=== PATIENT | female | born 1950 | race Caucasian/White ===

== ENCOUNTER 2018-04-04 06:39 | Day surgery (SDC) | payer OTHER ==
[2018-04-02 14:21] VITALS: BMI 30.9
[~2018-04-04 06:39] MED LIST: TOBRAMYCIN/DEXAMETHASONE OPHTH. OINTMENT 1 TUBE OS ONE
[2018-04-04] MEDS ORDERED: TROPICAMIDE 1% OPHTH SOLN 15 ML BOTTLE OP SCH (06:45)
[2018-04-04] MEDS ORDERED: PHENYLEPHRINE 2.5% OPHTH SOLN 15 ML BOTTLE OP SCH (06:45)
[2018-04-04] MEDS ORDERED: KETOROLAC TROMETHAMINE 0.5% 5 ML BOTTLE OPTHALMIC OP SCH (06:45)
[2018-04-04] MEDS ORDERED: CIPROFLOXACIN HCL 0.3% OPHTH 2.5ML BOTTLE OP SCH (06:45)
[2018-04-04] MEDS ORDERED: CHONDROITIN SU A/HYALUR SOD 1 KIT ONE ×2 (07:06→11:50)
[2018-04-04] MEDS ORDERED: LIDOCAINE HCL/PF 1% SDV 5ML VIAL ONE (07:19)
[2018-04-04] MEDS ORDERED: TOBRAMYCIN/DEXAMETHASONE OPHTH. OINTMENT 1 TUBE ONE (07:19)
[2018-04-04] MEDS ORDERED: LIDOCAINE HCL 2% JELLY (5 ML/TUBE) ONE (07:19)
[2018-04-04] MEDS ORDERED: BSS (NA/CA/MG/K) BALANCED SALT SOLUTION OPHTH SOLN 15 ML BOTTLE ONE (07:20)
[2018-04-04 07:26] VITALS: TEMP 97.7
[2018-04-04] MEDS ORDERED: CIPROFLOXACIN HCL 0.3% OPHTH 2.5ML BOTTLE ONE (07:28)
[2018-04-04] MEDS ORDERED: PHENYLEPHRINE 2.5% OPHTH SOLN 15 ML BOTTLE ONE (07:28)
[2018-04-04] MEDS ORDERED: TROPICAMIDE 1% OPHTH SOLN 15 ML BOTTLE ONE (07:28)
[2018-04-04] MEDS ORDERED: KETOROLAC TROMETHAMINE 0.5% 5 ML BOTTLE OPTHALMIC ONE (07:34)
[2018-04-04] MEDS ORDERED: CIPROFLOXACIN HCL 0.3% OPHTH 2.5ML BOTTLE OS ONE ×2 (07:41→07:47)
[2018-04-04] MEDS ORDERED: TROPICAMIDE 1% OPHTH SOLN 15 ML BOTTLE OS ONE ×3 (07:41→08:01)
[2018-04-04] MEDS ORDERED: PHENYLEPHRINE 2.5% OPHTH SOLN 15 ML BOTTLE OS ONE ×3 (07:41→08:01)
[2018-04-04] MEDS ORDERED: KETOROLAC TROMETHAMINE 0.5% 5 ML BOTTLE OPTHALMIC OS ONE ×3 (07:41→08:01)
[2018-04-04] MEDS ORDERED: ACETAMINOPHEN 325 MG TABLET (FP) PO PRN (08:00)
[2018-04-04] MEDS ORDERED: CIPROFLOXACIN 0.3% EYE DROPS 5 ML BOTTLE OS ONE (08:01)
--- NOTE | 2018-04-04 08:29 | HP ---
History & Physical Update - History History: No Change - Physical Physical: No Change - Assessment Assessment: No Change - Plan Plan: No Change (Dr. Alfaro's H and P reviewed from 03/26/18 no changes)
[2018-04-04] MEDS ORDERED: BUPIVACAINE HCL/PF 0.75% 10 ML VIAL ONE (08:31)
--- NOTE | 2018-04-04 08:32 | HP ---
- Patient Scheduled date of Surgery: 04/04/18 Scheduled Surgical Procedure: Phacoemulsification and cataract extraction with PCIOL Affected Eye: Left Chief Complaint (Indication for surgery): Decreased vision affecting ADLs - Ocular History Other Eye History: Other (narrow angles, PVD , OHTN) Eye Medications: latanoprost, vigamox Previous Eye Surgery: s/p LPI ou - Medical History Illnesses: Hypertension, Hypercholesterolemia, Other (depression) Current Medications: Ambulatory Orders Docusate Sodium [Colace] 300 mg PO DAILY 04/02/18 Escitalopram Oxalate [Lexapro -] 10 mg PO DAILY 04/02/18 Hydrochlorothiazide [Hctz -] 25 mg PO DAILY 04/02/18 Olmesartan Medoxomil [Benicar] 20 mg PO HS 04/02/18 Rosuvastatin [Crestor -] 20 mg PO HS 04/02/18 Allergies/Adverse Reactions: Allergies Allergy/AdvReac Type Severity Reaction Status Date / Time No Known Allergies Allergy Verified 04/04/18 07:24 Ocular Examination - Best Corrected Visual Acuity Distance: Right eye: 20/40 Distance: Left eye: 20/50 - External/Slit Lamp Examination Abnormalities: LLL papilla, dermatochalasis, tatoo eyeliner, s Pingueculum K decrease TBUT, AC Pi patent, plateau iris, ectropion uvea - Intraocular Pressure Intraocular Pressure - Right eye: 16 Intraocular Pressure-Left eye: 15 - Lens Lens: 2+ NS - Vitreous/Retina Vitreous/Retina: C:D 0.4 m/v wnl, + PVD - Special Examination M - Right eye: +3.25-0.75 x 060 M - Left eye: +3.75- 1.00 x 120 K - Right eye: 44.5/45.35 x 145 K - Left eye: 44.5/45 x 054 AL - Right eye: 22.22 AL - Left eye: 21.95 IOL bag: +24.0 D AUooto IOL sulcus: +23.o D [id number] IOL AC: +20.0 mta 4UO - Plan Plan: Phacoemulsification and cataract extraction - IOL Left eye Post-hospital care will be provided in office on: 04/05/18
[2018-04-04] MEDS ORDERED: PROPOFOL 20 ML ONE ×2 (08:37)
[2018-04-04] MEDS ORDERED: MIDAZOLAM HCL 2 MG/2 ML SINGLE DOSE VIAL ONE (08:37)
[2018-04-04] MEDS ORDERED: LIDOCAINE HCL/PF 2% SDV 5ML VIAL ONE (08:37)
[2018-04-04] MEDS ORDERED: BUPIVACAINE HCL/PF 0.75% 10 ML VIAL RB ONE (08:54)
[2018-04-04] MEDS ORDERED: LIDOCAINE HCL/PF 2% SDV 5ML VIAL INF ONE (08:54)
[2018-04-04] MEDS ORDERED: POVIDONE-IODINE 5% OPHTHALMIC PREP 30 ML SOLUTION OS ONE (08:55)
[2018-04-04] MEDS ORDERED: BSS (NA/CA/MG/K) BALANCED SALT SOLUTION OPHTH SOLN 15 ML BOTTLE OS ONE (09:01)
[2018-04-04] MEDS ORDERED: CHONDROITIN SU A/HYALUR SOD 1 KIT IO ONE ×2 (09:01)
[2018-04-04] MEDS ORDERED: LIDOCAINE HCL 1% PRESERVATIVE FREE - 30ML VIAL IO ONE (09:01)
[2018-04-04] MEDS ORDERED: EPINEPHrine/PF 1 MG/1 ML (1:1,000) AMPULE SQ ONE (09:10)
[2018-04-04] MEDS ORDERED: ACETYLCHOLINE 1:100 INTRA-OCUL 20 MG/2 ML KIT IO ONE (09:23)
[2018-04-04] MEDS ORDERED: TOBRAMYCIN/DEXAMETHASONE OPHTH. OINTMENT 1 TUBE OS ONE (09:33)
--- NOTE | 2018-04-04 09:39 | OP ---
Ophthalmology Operative Note Pre-Operative Diagnosis: Cataract Affected Eye: Left Operation: Phacoemulsification and cataract extraction with PCIOL Findings: NS Cataract, positvite pressure, iris prolapse Post-Operative Diagnosis: Same as Pre-op Clinical Application Specialist: None Anesthesiologist: Jacinto Dueñas Anesthesia: Local, Retrobulbar Specimens Removed: none Estimated blood loss: < 1 cc Drains & Tubes with Location: None Operative Report Dictated: Yes
--- NOTE | 2018-04-04 10:16 | OP ---
DATE OF OPERATION: DATE OF DICTATION: 04/04/2018 PREOPERATIVE DIAGNOSIS: Nuclear sclerotic cataract, left eye. POSTOPERATIVE DIAGNOSIS: Nuclear sclerotic cataract, left eye. PROCEDURE: Phacoemulsification and cataract extraction with insertion of posterior chamber intraocular lens, left eye. SURGEON: Miri Siddiqui MD PAYROLL AND BENEFITS ANALYST: None. ANESTHESIA: Retrobulbar block. ANESTHESIOLOGIST: Jacinto Dueñas MD OPERATIVE PROCEDURE: Following satisfactory intravenous sedation, the patient received local anesthesia using a 50/50 mixture of lidocaine 2% and Marcaine 0.75%. A Van Lint lid block was delivered to the left eye using 4 mL of the mixture in a retrobulbar injection using 4 mL of the mixture. The patient was then prepped and draped in the usual sterile fashion so as to expose only the left eye. Ophthalmic Betadine was instilled into the inferior fornix. The lashes were taped out of the surgical field. An eyelid speculum was placed into the left eye. A paracentesis was made in inferior clear cornea at the limbus, and 0.3 mL of non-preserved lidocaine 1% was injected into the anterior chamber. Viscoelastic material was instilled into the anterior chamber via the paracentesis. A 2.4-mm keratome was then used to create the main incision in temporal clear cornea at the limbus. A continuous curvilinear capsulorrhexis was performed using a cystotome and Utrata forceps. During this step, the iris was prolapsing and was placed back in the eye using Viscoat. Hydrodissection of the lens cortex was gently performed using BSS and a cannula until the nucleus was noted to be freely rotating. The phacoemulsification tip was then inserted via the main wound and used to sculpt 2 perpendicular grooves into the lens nucleus. The nucleus was cracked into 4 quadrants using the 2 instruments. Each quadrant was lifted out of the capsule into the iris plane and individually phacoemulsified. The remaining cortical material was then aspirated using the irrigation and aspiration port. The capsular bag was inflated using Provisc, and a AcrySof lens which was preloaded, model [id number], +24.0 diopters was injected into the capsular bag and centered using a Sinskey hook. The residual Viscoelastic material was removed from the anterior chamber using irrigation and aspiration. The wound edges were hydrated using BSS. The wound was tested for leakage. It was found to be watertight, therefore TobraDex ointment was placed in the eye and the speculum was removed from the eye and the eyelid was closed. A sterile dressing and shield were placed over the eye, and the patient was transferred to the recovery room in stable condition, told to follow up in 1 day. MIRI SIDDIQUI M.D. [id number]
[2018-04-04 10:31] VITALS: BP 150/58; PULSE 81
== END 2018-04-04 10:25 | disposition home or self-care (01) ==
LOC: JASU-SURG 06:39
PROVIDERS: ATTEND Ophthalmology
PROC: 08RK3JZ Replacement of Left Lens with Synthetic Substitute, Percutaneous Approach (ICD-10-PCS; principal; 2018-04-04 08:30)
DX: H26.9 Unspecified cataract (principal)

== ENCOUNTER 2018-06-20 07:56 | Day surgery (SDC) | payer OTHER ==
--- NOTE | 2018-06-19 16:25 | HP ---
- Patient Scheduled date of Surgery: 06/20/18 Scheduled Surgical Procedure: Phacoemulsification and cataract extraction with PCIOL Affected Eye: Right Chief Complaint (Indication for surgery): Decreased vision affecting ADLs - Ocular History Other Eye History: Other (narrow angles , pvd, OHTN) Eye Medications: vigamox , pataday, latanoprost Previous Eye Surgery: s/p ce/pciol OS, s/p LPI OU - Medical History Illnesses: Hypertension, Hypercholesterolemia, Other (depression) Current Medications: Ambulatory Orders Docusate Sodium [Colace] 300 mg PO DAILY 04/02/18 Escitalopram Oxalate [Lexapro -] 10 mg PO DAILY 04/02/18 Hydrochlorothiazide [Hctz -] 25 mg PO DAILY 04/02/18 Olmesartan Medoxomil [Benicar] 20 mg PO HS 04/02/18 Rosuvastatin [Crestor -] 20 mg PO HS 04/02/18 Allergies/Adverse Reactions: Allergies Allergy/AdvReac Type Severity Reaction Status Date / Time No Known Allergies Allergy Verified 04/04/18 07:24 Ocular Examination - Best Corrected Visual Acuity Distance: Right eye: 20/40 Distance: Left eye: 20/20 - External/Slit Lamp Examination Abnormalities: papillae, pingueculum , TBUT decreased, PI 11 oclclok , plateau iris - Intraocular Pressure Intraocular Pressure - Right eye: 16 Intraocular Pressure-Left eye: 12 - Lens Lens: 2+ NS - Vitreous/Retina Vitreous/Retina: C:D 0.5 prominent lamina , pvd, m/v wnl - Special Examination M - Right eye: +3.25-0.75 x 060 M - Left eye: plano-0.75 x 085 K - Right eye: 44/45.5 x143 K - Left eye: 45/45.25 x 107 AL - Right eye: 22.36 AL - Left eye: 21.74 IOL bag: +23.5 AUooto IOL sulcus: +22.5 MN60AC IOL AC: +19.0 MTA 4UO - Impression Impression: Cataract Right Eye - Plan Plan: Phacoemulsification and cataract extraction - IOL Right eye Post-hospital care will be provided in office on: 06/21/18
[2018-06-19 19:12] VITALS: BMI 26.6
--- NOTE | 2018-06-20 07:16 | HP ---
History & Physical Update - History History: Change (see notes) (Hep C) - Physical Physical: No Change - Assessment Assessment: No Change - Plan Plan: No Change (H and P from Dr. Vaca 06/06/18 reviewed.)
[~2018-06-20 07:56] MED LIST changes: +ACETAMINOPHEN 325 MG TABLET (FP) PO PRN; -TOBRAMYCIN/DEXAMETHASONE OPHTH. OINTMENT 1 TUBE OS ONE; +TOBRAMYCIN/DEXAMETHASONE OPHTH. OINTMENT 1 TUBE TP ONE
[2018-06-20] MEDS ORDERED: CIPROFLOXACIN HCL 0.3% OPHTH 2.5ML BOTTLE ONE (08:16)
[2018-06-20] MEDS ORDERED: KETOROLAC TROMETHAMINE 0.5% EYE DROP 1 DROP DROPS ONE (08:17)
[2018-06-20] MEDS ORDERED: TROPICAMIDE 1% OPHTH SOLN 15 ML BOTTLE ONE (08:17)
[2018-06-20] MEDS ORDERED: PHENYLEPHRINE 2.5% OPHTH SOLN 15 ML BOTTLE ONE (08:17)
[2018-06-20] MEDS: PHENYLEPHRINE 2.5% OPHTH SOLN 15 ML BOTTLE OP SCH ×3 (08:30→08:46)
[2018-06-20] MEDS: CIPROFLOXACIN HCL 0.3% OPHTH 2.5ML BOTTLE OP SCH ×3 (08:30→08:47)
[2018-06-20] MEDS: KETOROLAC TROMETHAMINE 0.5% EYE DROP 1 DROP DROPS OP SCH ×2 (08:30→08:35)
[2018-06-20] MEDS: TROPICAMIDE 1% OPHTH SOLN 15 ML BOTTLE OP SCH ×3 (08:30→08:46)
[2018-06-20 08:33] VITALS: TEMP 97.8
[2018-06-20] MEDS ORDERED: MANNITOL 25% 12.5 GM/50 ML VIAL IVPB ONE ×2 (10:09→11:00)
[2018-06-20] MEDS ORDERED: PROPOFOL 20 ML ONE (10:26)
[2018-06-20] MEDS ORDERED: TETRACAINE 0.5% OPHTH SOLN 2 ML BOTTLE TP ONE (10:57)
[2018-06-20] MEDS ORDERED: POVIDONE-IODINE 5% OPHTHALMIC PREP 30 ML SOLUTION OD ONE (10:58)
[2018-06-20] MEDS ORDERED: LIDOCAINE HCL/PF 2% SDV 5ML VIAL INF ONE (10:59)
[2018-06-20] MEDS ORDERED: BUPIVACAINE HCL/PF 0.75% 10 ML VIAL NR ONE (10:59)
[2018-06-20] MEDS ORDERED: CHONDROITIN SU A/HYALUR SOD 1 KIT IO ONE (11:05)
[2018-06-20] MEDS ORDERED: BSS (NA/CA/MG/K) BALANCED SALT SOLUTION OPHTH SOLN 15 ML BOTTLE OD ONE (11:05)
[2018-06-20] MEDS ORDERED: EPINEPHrine/PF 1 MG/1 ML (1:1,000) AMPULE SQ ONE (11:14)
[2018-06-20] MEDS ORDERED: TOBRAMYCIN/DEXAMETHASONE OPHTH. OINTMENT 1 TUBE TP ONE (11:30)
--- NOTE | 2018-06-20 11:36 | OP ---
Ophthalmology Operative Note Pre-Operative Diagnosis: Cataract Affected Eye: Right Operation: Phacoemulsification and cataract extraction with PCIOL Findings: Ns cataract right eye Post-Operative Diagnosis: Same as Pre-op Galvanizing Pot Runner: None Anesthesiologist: Gege Nichols MD Anesthesia: Local, Peribulbar Specimens Removed: none Estimated blood loss: <1 cc Drains & Tubes with Location: none Operative Report Dictated: Yes
[2018-06-20 12:50] VITALS: BP 143/78; PULSE 77
--- NOTE | 2018-09-11 01:33 | OP ---
DATE OF OPERATION: 06/20/2018 PREOPERATIVE DIAGNOSIS: Nuclear sclerotic cataract, right eye. POSTOPERATIVE DIAGNOSIS: Nuclear sclerotic cataract, right eye. PROCEDURE: Phacoemulsification and cataract extraction with insertion of posterior chamber intraocular lens, right eye. SURGEON: Miri Siddiqui MD RECREATIONAL DIRECTOR: None. ANESTHESIA: Peribulbar block. ANESTHESIOLOGIST: Gege Nichols MD OPERATIVE PROCEDURE: Following intravenous sedation, the patient received local anesthesia using a 50-50 mixture of lidocaine 2% and Marcaine 0.75%. A peribulbar injection using 4 mL of the mixture was delivered. The patient was then prepped and draped in the usual sterile fashion to expose only the right eye. Prior to the block, the patient received IV mannitol 20 g in a bolus, about a half an hour before the surgery. Ophthalmic betadine was then instilled into the inferior fornix. The lashes were taped out of the surgical field. An eyelid speculum was placed into the right eye. A paracentesis was made and superior temporal clear cornea of the limbus. Viscoelastic material was instilled into the anterior chamber via the paracentesis. A 2.4-mm keratome was then used to create the main incision in the temporal clear cornea of the limbus. A continuous curvilinear capsulorrhexis was performed using a cystotome and Utrata forceps. Hydrodissection of the lens cortex was performed using BSS and a cannula until the nucleus was noted to be freely rotating. The phacoemulsification tip was inserted by the main wound and used to sculp 2 perpendicular grooves into the lens nucleus. The nucleus was cracked in 4 quadrants using 2 instruments. Each quadrant was lifted out of the capsule into the iris plane and individually phacoemulsified. The remaining cortical material was then aspirated using the irrigation and aspiration port. The capsular bag was inflated using Provisc and a pre-loaded AcrySof lens, model [id number] power plus 23.5 diopters was injected into the capsular bag and centered using a Sinskey hook. The residual viscoelastic material was removed from the anterior chamber using irrigation and aspiration. The wound edges were hydrated using BSS. The wound was tested for leakage and was found to be water tight. Therefore, TobraDex ointment was placed into the eye and the speculum was removed from the eye and eyelid was closed. Sterile dressing and shield were placed over the eye and the patient was transferred to the recovery room in stable condition. She was told to follow up in 1 day. MIRI SIDDIQUI M.D. [id number]
== END 2018-06-20 12:53 | disposition home or self-care (01) ==
LOC: JASU-SURG 07:56
PROVIDERS: ATTEND Ophthalmology
PROC: 08RJ3JZ Replacement of Right Lens with Synthetic Substitute, Percutaneous Approach (ICD-10-PCS; principal; 2018-06-20 09:30)
DX: H25.11 Age-related nuclear cataract, right eye (principal)

== ENCOUNTER 2022-05-27 12:25 | Emergency (ER) | payer OTHER ==
[2022-05-27 12:58] VITALS: BP 133/82; PULSE 93; RESP 19; TEMP 99.3; BMI 31.1
== END 2022-05-27 14:00 | disposition home or self-care (01) ==
LOC: JERFT 12:25
DX: B02.9 Zoster without complications (principal)
CPT/HCPCS: 99281-25

== ENCOUNTER 2022-08-26 07:57 | Inpatient (IN) | payer OTHER ==
[2022-08-26 08:10] VITALS: BMI 29.2
[2022-08-26] MEDS ORDERED: DEXAMETHASONE SOD PHOSPHATE 10 MG/1 ML VIAL IVPUSH ONE (08:19)
[2022-08-26] MEDS ORDERED: ONDANSETRON 4 MG/2 ML VIAL IVPB ONE (08:24)
[2022-08-26] MEDS ORDERED: ALBUTEROL SO4 2.5/IPRATROPIUM 0.5 INH SOL 3 ML VIAL.NEB. NEB ONE (08:25)
[2022-08-26] MEDS ORDERED: SODIUM CHLORIDE 0.9% 500 ML INFUS.BAG IV ONE (08:25)
[2022-08-26] MEDS ORDERED: DEXAMETHASONE SOD PHOSPHATE 10 MG/1 ML VIAL ONE (08:26)
[2022-08-26 08:55] LABS: BASO % 0.3 % (0-2.0); HEMATOCRIT 42.4 % (32.4-45.2); HEMOGLOBIN 13.8 GM/dL (10.7-15.3); LYMPH % 14.1 % (8-40); MCH 31.2 pg (25.7-33.7); MCHC 32.5 g/dl (32.0-36.0); MEAN PLT VOLUME 10.5 fl (7.5-11.1); MONO % 11.7 % (3.8-10.2); NEUT % 72.9 % (42.8-82.8); PLATELET COUNT 237 10^3/uL (134-434); RBC 4.41 M/mm3 (3.60-5.2); RDW 14.1 % (11.6-15.6); WHITE BLOOD COUNT 6.7 K/mm3 (4.0-10.0)
[2022-08-26] MEDS: ALBUTEROL SO4 2.5/IPRATROPIUM 0.5 INH SOL 3 ML VIAL.NEB. NEB SCH ×4 (08:57→10:26)
[2022-08-26] MEDS ORDERED: ONDANSETRON 4 MG/2 ML VIAL ONE (09:05)
[2022-08-26 09:15] LABS: BLOOD UREA NITROGEN 13.2 mg/dL (7-18); CALCIUM 9.1 mg/dL (8.5-10.1)
[2022-08-26 09:17] LABS: ALBUMIN 3.2 g/dl (3.4-5.0); MAGNESIUM 2.1 mg/dL (1.8-2.4)
[2022-08-26 09:19] LABS: CREATININE 0.9 mg/dL (0.55-1.3)
[2022-08-26 09:20] LABS: BILIRUBIN,TOTAL 0.7 mg/dL (0.2-1); TOT PROT 7.4 g/dl (6.4-8.2)
[2022-08-26 10:16] LABS: BLOOD UREA NITROGEN 12.6 mg/dL (7-18); CALCIUM 9.2 mg/dL (8.5-10.1)
[2022-08-26] MEDS ORDERED: REMDESIVIR 200 MG in SODIUM CHLORIDE 250 ML IVPB ONE (10:18)
[2022-08-26 10:19] LABS: CREATININE 0.9 mg/dL (0.55-1.3)
[2022-08-26 11:22] LABS: N-TERMINAL BNP 169.5 pg/ml (5-125)
[2022-08-26 11:22] LABS: VENOUS BASE EXCESS -2.6 mmol/L (-2-2); VENOUS O2 SATURATION 80.1 % (70-80); VENOUS PCO2 42.4 mmHg (38-52); VENOUS PH 7.351 (7.310-7.410)
[2022-08-26 11:59] LABS: INR 1.15 (0.83-1.09); PROTHROMBIN TIME (PATIENT) 13.2 SEC (9.7-13.0)
[2022-08-26] MEDS ORDERED: ACETAMINOPHEN 325 MG TABLET (FP) PO PRN (16:00)
[2022-08-26] MEDS ORDERED: ALBUTEROL SO4 HFA INHALER IH PRN (16:00)
[2022-08-26] MEDS ORDERED: ONDANSETRON 4 MG/2 ML VIAL IVPUSH PRN (16:00)
[2022-08-26] MEDS: LACTATED RINGERS SOLUTION 1,000 ML IV SCH (19:43)
[2022-08-26] MEDS: LOSARTAN POTASSIUM 50 MG TABLET PO SCH (22:27)
[2022-08-26] MEDS ORDERED: LOSARTAN POTASSIUM 50 MG TABLET ONE (22:27)
[2022-08-26] MEDS ORDERED: ASCORBIC ACID 500 MG TABLET (FP) ONE (22:27)
[2022-08-26] MEDS: ASCORBIC ACID 500 MG TABLET (FP) PO SCH (22:27)
[2022-08-27 10:04] LABS: HEMATOCRIT 38.7 % (32.4-45.2); HEMOGLOBIN 12.4 GM/dL (10.7-15.3); MCH 31.1 pg (25.7-33.7); MEAN CELL VOLUME 97.1 fl (80-96); MEAN PLT VOLUME 10.9 fl (7.5-11.1); PLATELET COUNT 173 10^3/uL (134-434); RBC 3.98 M/mm3 (3.60-5.2); RDW 14.1 % (11.6-15.6); WHITE BLOOD COUNT 5.1 K/mm3 (4.0-10.0)
[2022-08-27 10:22] LABS: CALCIUM 8.9 mg/dL (8.5-10.1)
[2022-08-27 10:23] LABS: BLOOD UREA NITROGEN 14.1 mg/dL (7-18)
[2022-08-27 10:26] LABS: CREATININE 0.7 mg/dL (0.55-1.3)
[2022-08-27] MEDS: ENOXAPARIN NA (PORCINE) 40 MG/0.4 ML DISP.SYRIN SQ SCH (11:38)
[2022-08-27] MEDS: DEXAMETHASONE SOD PHOSPHATE 10 MG/1 ML VIAL IVPUSH SCH (11:40)
[2022-08-27] MEDS: CHOLECALCIFEROL (VIT D3) 1,000 UNIT (25 MCG) TABLET PO SCH (11:40)
[2022-08-27] MEDS: SERTRALINE HCL 50 MG TABLET (FP) PO SCH (11:40)
[2022-08-27] MEDS: REMDESIVIR 100 MG in SODIUM CHLORIDE 250 ML IVPB SCH (11:40)
[2022-08-27] MEDS: ASCORBIC ACID 500 MG TABLET (FP) PO SCH ×2 (11:40→22:29)
[2022-08-27] MEDS: LACTATED RINGERS SOLUTION 1,000 ML IV SCH (11:41)
[2022-08-27] MEDS ORDERED: ROSUVASTATIN CA 10 MG TABLET PO SCH (22:00)
[2022-08-27] MEDS: LOSARTAN POTASSIUM 50 MG TABLET PO SCH (22:30)
[2022-08-28] MEDS: ASCORBIC ACID 500 MG TABLET (FP) PO SCH ×2 (10:30→21:09)
[2022-08-28] MEDS: CHOLECALCIFEROL (VIT D3) 1,000 UNIT (25 MCG) TABLET PO SCH (10:30)
[2022-08-28] MEDS: REMDESIVIR 100 MG in SODIUM CHLORIDE 250 ML IVPB SCH (10:30)
[2022-08-28] MEDS: SERTRALINE HCL 50 MG TABLET (FP) PO SCH (10:30)
[2022-08-28] MEDS: ENOXAPARIN NA (PORCINE) 40 MG/0.4 ML DISP.SYRIN SQ SCH (10:30)
[2022-08-28] MEDS: DEXAMETHASONE SOD PHOSPHATE 10 MG/1 ML VIAL IVPUSH SCH (10:30)
[2022-08-28] MEDS: LACTATED RINGERS SOLUTION 1,000 ML IV SCH (10:31)
[2022-08-28] MEDS: LOSARTAN POTASSIUM 50 MG TABLET PO SCH (21:09)
[2022-08-29 09:03] VITALS: BP 140/80; PULSE 68; RESP 17; TEMP 97.8
[2022-08-29] MEDS: SERTRALINE HCL 50 MG TABLET (FP) PO SCH (09:47)
[2022-08-29] MEDS: ENOXAPARIN NA (PORCINE) 40 MG/0.4 ML DISP.SYRIN SQ SCH ×2 (09:47→10:14)
[2022-08-29] MEDS: ASCORBIC ACID 500 MG TABLET (FP) PO SCH (09:47)
[2022-08-29] MEDS: CHOLECALCIFEROL (VIT D3) 1,000 UNIT (25 MCG) TABLET PO SCH (09:47)
[2022-08-29] MEDS: DEXAMETHASONE SOD PHOSPHATE 10 MG/1 ML VIAL IVPUSH SCH (09:48)
[2022-08-29] MEDS: REMDESIVIR 100 MG in SODIUM CHLORIDE 250 ML IVPB SCH (10:15)
== END 2022-08-29 13:56 | disposition home or self-care (01) | DRG 179 ==
LOC: JER 07:57 → JERBED 10:18 → J5S 08-27 04:18
PROVIDERS: ADMIT Internal Medicine; ATTEND Internal Medicine
PROC: XW033E5 Introduction of Remdesivir Anti-infective into Peripheral Vein, Percutaneous Approach, New Technology Group 5 (ICD-10-PCS; principal; 2022-08-26)
DX: U07.1 COVID-19 (principal); I10 Essential (primary) hypertension; E78.00 Pure hypercholesterolemia, unspecified; E66.9 Obesity, unspecified; Z68.29 Body mass index [BMI] 29.0-29.9, adult; R09.02 Hypoxemia; J44.9 Chronic obstructive pulmonary disease, unspecified; J45.909 Unspecified asthma, uncomplicated
CPT/HCPCS: 0241U-QW; 36415; 71045-TC-FY; 80048; 80053; 82728; 82803; 83615; 83735; 83880; 84484; 85025; 85027; 85610; 85730; 86140; 93005; 93010; 99291; C9399; J1100

== ENCOUNTER 2023-03-04 18:48 | Inpatient (IN) | payer OTHER ==
[2023-03-04] MEDS ORDERED: SUCRALFATE 1 GM TABLET (FP) PO ONE (20:50)
[2023-03-04] MEDS ORDERED: MAG HYDROX/AL HYDROX/SIMETH -MYLANTA- ORAL SUSPENSION PO ONE (20:50)
[2023-03-04] MEDS ORDERED: ACETAMINOPHEN 1000 MG/100 ML BAG IVPB ONE (20:50)
[2023-03-04] MEDS ORDERED: FAMOTIDINE 20 MG/50 ML IVPB 20 MG/50 ML MG IVPB ONE ×2 (20:50→20:59)
[2023-03-04] MEDS ORDERED: SUCRALFATE 1 GM TABLET (FP) ONE (20:59)
[2023-03-04] MEDS ORDERED: MAG HYDROX/AL HYDROX/SIMETH 30 ML UNIT-DOSE CUP ONE (20:59)
[2023-03-04] MEDS ORDERED: ACETAMINOPHEN INJECTION 100 ML IVPB ONE (20:59)
[2023-03-04] MEDS ORDERED: PIPERACILLIN/TAZOB 3.375 GM 3.375 GM in DEXTROSE 5%-WATER - 50 ML IVPB ONE (21:05)
[2023-03-04] MEDS ORDERED: LACTATED RINGERS SOLUTION 1000 ML INFUS.BAG IV ONE (21:39)
[2023-03-04] MEDS ORDERED: PIPERACILLIN/TAZOB 3.375 GM 3.375 GM/50 ML BAG IVPB ONE (21:45)
[2023-03-04 21:56] LABS: BASO % 0.3 % (0-2.0); EOS % 0.1 % (0-4.5); HEMOGLOBIN 13.1 GM/dL (10.7-15.3); MCH 30.7 pg (25.7-33.7); MCHC 32.6 g/dl (32.0-36.0); MEAN CELL VOLUME 94.3 fl (80-96); MEAN PLT VOLUME 10.8 fl (7.5-11.1); MONO % 7.5 % (3.8-10.2); NEUT % 85.1 % (42.8-82.8); PLATELET COUNT 236 10^3/uL (134-434); RBC 4.25 M/mm3 (3.60-5.2); RDW 14.2 % (11.6-15.6); WHITE BLOOD COUNT 13.6 K/mm3 (4.0-10.0)
[2023-03-04 22:04] LABS: INR 1.19 (0.83-1.09); PROTHROMBIN TIME (PATIENT) 13.8 SEC (9.7-13.0)
[2023-03-04 22:15] LABS: POTASSIUM 4.4 mmol/L (3.5-5.1)
[2023-03-04 22:17] LABS: ALBUMIN 3.3 g/dl (3.4-5.0); CALCIUM 9.3 mg/dL (8.5-10.1); MAGNESIUM 2.2 mg/dL (1.8-2.4)
[2023-03-04 22:20] LABS: CREATININE 1.1 mg/dL (0.55-1.3)
[2023-03-04 22:22] LABS: BILIRUBIN,TOTAL 0.5 mg/dL (0.2-1); TOT PROT 7.4 g/dl (6.4-8.2)
[2023-03-04 22:29] LABS: LACTIC ACID 2.1 mmol/L (0.4-2.0)
[2023-03-05] MEDS ORDERED: DOCUSATE SODIUM 100 MG CAPSULE (FP) PO PRN ×2 (01:57→15:27)
[2023-03-05] MEDS ORDERED: SODIUM CHLORIDE 1,000 ML IV SCH (02:00)
[2023-03-05] MEDS ORDERED: ACETAMINOPHEN 1000 MG/100 ML BAG IVPB PRN (02:01)
[2023-03-05] MEDS ORDERED: ONDANSETRON 4 MG/2 ML VIAL IVPUSH PRN ×4 (02:05→15:27)
[2023-03-05 04:00] LABS: EPI CELLS 6 /uL (0-25.1); HYALINE CASTS 1 /uL (0-3.1); PH,URINE 5.5 (5.0-8.0); URINE APPEARANCE CLEAR; URINE BACTERIA 383 /uL (0-1359); URINE BILIRUBIN NEGATIVE (NEGATIVE); URINE COLOR YELLOW; URINE GLUCOSE (UA) NEGATIVE (NEGATIVE); URINE KETONE NEGATIVE (NEGATIVE); URINE LEUK ESTERASE NEGATIVE (NEGATIVE); URINE NITRITE NEGATIVE (NEGATIVE); URINE PROTEIN TRACE (NEGATIVE); URINE RBC 26 /uL (0-23.9); URINE UROBILINOGEN 0.2 mg/dL (0.2-1.0)
[2023-03-05 04:48] VITALS: BMI 30.2
[2023-03-05] MEDS ORDERED: PANTOPRAZOLE SODIUM 40 MG VIAL IVPUSH ONE (06:15)
[2023-03-05] MEDS: PIPERACILLIN/TAZOB 3.375 GM 3.375 GM in DEXTROSE 5%-WATER - 50 ML IVPB SCH ×3 (08:33→18:17)
[2023-03-05] MEDS ORDERED: HYDROCHLOROTHIAZIDE 25 MG TABLET (FP) PO SCH (10:00)
[2023-03-05] MEDS ORDERED: SERTRALINE HCL 50 MG TABLET (FP) PO SCH (10:00)
[2023-03-05] MEDS ORDERED: ONDANSETRON 4 MG/2 ML VIAL ONE (13:04)
[2023-03-05] MEDS ORDERED: ROCURONIUM BROMIDE 50 MG/5 ML SYRINGE ONE (13:04)
[2023-03-05] MEDS ORDERED: SUCCINYLCHOLINE CHLORIDE 200 MG/10 ML SYRINGE ONE (13:04)
[2023-03-05] MEDS ORDERED: PROPOFOL 20 ML ONE (13:04)
[2023-03-05] MEDS ORDERED: DEXAMETHASONE SOD PHOSPHATE 4 MG/1 ML VIAL ONE (13:04)
[2023-03-05] MEDS ORDERED: KETOROLAC TROMETHAMINE 30 MG/1 ML VIAL ONE (13:04)
[2023-03-05] MEDS ORDERED: ceFAZolin SODIUM 1 GM VIAL ONE (13:04)
[2023-03-05] MEDS ORDERED: BUPIVACAINE HCL/PF 0.5% (5 MG/ML) 30 ML VIAL IJ ONE ×2 (13:32)
[2023-03-05] MEDS ORDERED: BUPIVACAINE HCL/PF 0.5% (5MG/ML) 10 ML VIAL ONE (13:35)
[2023-03-05] MEDS ORDERED: NEOSTIGMINE METHYLSULFATE 0.5 MG/1 ML - 10 ML MDV ONE (14:44)
[2023-03-05] MEDS ORDERED: GLYCOPYRROLATE 0.2 MG/1 ML VIAL ONE ×2 (14:44)
[2023-03-05] MEDS ORDERED: oxyCODONE HCL 5 MG TABLET PO PRN ×2 (15:12→15:27)
[2023-03-05] MEDS ORDERED: LACTATED RINGERS SOLUTION 1,000 ML IV SCH (15:15)
[2023-03-05] MEDS ORDERED: PIPERACILLIN/TAZOB 3.375 GM 3.375 GM in DEXTROSE 5%-WATER - 50 ML IVPB SCH ×2 (15:45→16:00)
[2023-03-05] MEDS ORDERED: ACETAMINOPHEN INJECTION 100 ML IVPB ONE (16:44)
[2023-03-05] MEDS: ACETAMINOPHEN 1000 MG/100 ML BAG IVPB SCH ×2 (16:50→22:00)
[2023-03-05] MEDS: LACTATED RINGERS SOLUTION 1,000 ML IV SCH (18:19)
[2023-03-05] MEDS: ROSUVASTATIN CA 10 MG TABLET PO SCH (21:59)
[2023-03-05] MEDS ORDERED: ROSUVASTATIN CA 10 MG TABLET PO SCH (22:00)
[2023-03-06] MEDS: PIPERACILLIN/TAZOB 3.375 GM 3.375 GM in DEXTROSE 5%-WATER - 50 ML IVPB SCH ×3 (01:17→18:50)
[2023-03-06] MEDS ORDERED: ACETAMINOPHEN 325 MG TABLET (FP) PO PRN ×2 (01:57→08:00)
[2023-03-06] MEDS: LACTATED RINGERS SOLUTION 1,000 ML IV SCH ×2 (05:31→18:50)
[2023-03-06 07:54] LABS: BASO % 0.2 % (0-2.0); EOS % 0.2 % (0-4.5); HEMATOCRIT 33.5 % (32.4-45.2); HEMOGLOBIN 11.1 GM/dL (10.7-15.3); MCH 30.9 pg (25.7-33.7); MCHC 33.2 g/dl (32.0-36.0); MEAN CELL VOLUME 93.3 fl (80-96); MEAN PLT VOLUME 10.4 fl (7.5-11.1); MONO % 7.1 % (3.8-10.2); NEUT % 84.5 % (42.8-82.8); PLATELET COUNT 178 10^3/uL (134-434); RBC 3.59 M/mm3 (3.60-5.2); RDW 14.3 % (11.6-15.6); WHITE BLOOD COUNT 12.2 K/mm3 (4.0-10.0)
[2023-03-06 08:11] LABS: POTASSIUM 3.6 mmol/L (3.5-5.1)
[2023-03-06 08:14] LABS: BLOOD UREA NITROGEN 16.9 mg/dL (7-18); CALCIUM 8.2 mg/dL (8.5-10.1); MAGNESIUM 2.2 mg/dL (1.8-2.4)
[2023-03-06 08:17] LABS: CREATININE 0.8 mg/dL (0.55-1.3); PHOSPHOROUS 2.6 mg/dL (2.5-4.9)
[2023-03-06 08:19] LABS: BILIRUBIN,TOTAL 0.7 mg/dL (0.2-1); TOT PROT 5.5 g/dl (6.4-8.2)
[2023-03-06 08:35] LABS: ALBUMIN 2.2 g/dl (3.4-5.0)
[2023-03-06] MEDS ORDERED: PIPERACILLIN/TAZOB 3.375 GM 3.375 GM in DEXTROSE 5%-WATER - 50 ML IVPB SCH (09:00)
[2023-03-06] MEDS ORDERED: oxyCODONE HCL 5 MG TABLET PO PRN ×2 (09:21→09:22)
[2023-03-06] MEDS: SERTRALINE HCL 50 MG TABLET (FP) PO SCH (09:45)
[2023-03-06] MEDS: HYDROCHLOROTHIAZIDE 25 MG TABLET (FP) PO SCH (09:45)
[2023-03-06] MEDS: ACETAMINOPHEN 500 MG TABLET (FP) PO PRN (15:55)
[2023-03-06] MEDS: ROSUVASTATIN CA 10 MG TABLET PO SCH (22:42)
[2023-03-07] MEDS: PIPERACILLIN/TAZOB 3.375 GM 3.375 GM in DEXTROSE 5%-WATER - 50 ML IVPB SCH ×3 (02:23→18:29)
[2023-03-07 10:00] LABS: HEMATOCRIT 35.7 % (32.4-45.2); MCH 31.4 pg (25.7-33.7); MCHC 33.5 g/dl (32.0-36.0); MEAN CELL VOLUME 93.8 fl (80-96); MEAN PLT VOLUME 10.3 fl (7.5-11.1); PLATELET COUNT 229 10^3/uL (134-434); RBC 3.81 M/mm3 (3.60-5.2); RDW 14.3 % (11.6-15.6); WHITE BLOOD COUNT 6.8 K/mm3 (4.0-10.0)
[2023-03-07] MEDS: ACETAMINOPHEN 500 MG TABLET (FP) PO PRN ×2 (10:07→22:20)
[2023-03-07] MEDS: HYDROCHLOROTHIAZIDE 25 MG TABLET (FP) PO SCH (10:08)
[2023-03-07] MEDS: SERTRALINE HCL 50 MG TABLET (FP) PO SCH (10:08)
[2023-03-07 10:17] LABS: BASO % 0.3 % (0-2.0); EOS % 2.8 % (0-4.5); LYMPH % 20.7 % (8-40); MONO % 7.9 % (3.8-10.2); NEUT % 68.3 % (42.8-82.8); POTASSIUM 3.9 mmol/L (3.5-5.1)
[2023-03-07 10:25] LABS: ALBUMIN 2.6 g/dl (3.4-5.0); BLOOD UREA NITROGEN 10.7 mg/dL (7-18); CALCIUM 8.9 mg/dL (8.5-10.1)
[2023-03-07 10:29] LABS: CREATININE 0.9 mg/dL (0.55-1.3)
[2023-03-07 10:30] LABS: BILIRUBIN,TOTAL 0.4 mg/dL (0.2-1); TOT PROT 6.5 g/dl (6.4-8.2)
[2023-03-07] MEDS: LACTATED RINGERS SOLUTION 1,000 ML IV SCH (14:22)
[2023-03-07] MEDS: ROSUVASTATIN CA 10 MG TABLET PO SCH (22:08)
[2023-03-08] MEDS: PIPERACILLIN/TAZOB 3.375 GM 3.375 GM in DEXTROSE 5%-WATER - 50 ML IVPB SCH ×2 (01:21→09:16)
[2023-03-08 02:05] VITALS: RESP 18
[2023-03-08] MEDS: SERTRALINE HCL 50 MG TABLET (FP) PO SCH (09:16)
[2023-03-08] MEDS: HYDROCHLOROTHIAZIDE 25 MG TABLET (FP) PO SCH (09:16)
[2023-03-08 14:12] VITALS: BP 138/64; PULSE 79; TEMP 98.2
== END 2023-03-08 14:00 | disposition home or self-care (01) | DRG 418 ==
LOC: JER 18:48 → JERBED 03-05 01:00 → J5S 03-05 03:41 → J8W 03-05 14:21
PROVIDERS: ADMIT Internal Medicine; ATTEND Internal Medicine
PROC: 0FT44ZZ Resection of Gallbladder, Percutaneous Endoscopic Approach (ICD-10-PCS; principal; 2023-03-05 14:00)
DX: K80.00 Calculus of gallbladder with acute cholecystitis without obstruction (principal); E87.20 Acidosis, unspecified; E87.29 Other acidosis; K82.A1 Gangrene of gallbladder in cholecystitis; I10 Essential (primary) hypertension; E78.5 Hyperlipidemia, unspecified; F32.A Depression, unspecified; K58.9 Irritable bowel syndrome, unspecified; K57.90 Diverticulosis of intestine, part unspecified, without perforation or abscess without bleeding; D12.0 Benign neoplasm of cecum; R73.03 Prediabetes; R50.9 Fever, unspecified; D72.829 Elevated white blood cell count, unspecified
CPT/HCPCS: 0241U-QW; 36415; 71045-TC-FY; 71275-TC; 76705-TC; 80053; 81003; 82962; 83605; 83690; 83735; 84100; 84484; 85025; 85379; 85610; 85730; 86850; 86900; 86901; 87040; 87086; 88304-TC; 93005; 93010; 94760; 97116-GP; 97162-GP; 99285-25; Q9967

== ENCOUNTER 2023-11-05 02:44 | Emergency (ER) | payer OTHER ==
[2023-11-05 02:55] VITALS: BP 144/84; PULSE 87; RESP 18; TEMP 98.3; BMI 30.8
[2023-11-05] MEDS ORDERED: METOCLOPRAMIDE HCL INJECTION 10 MG/2 ML VIAL IVPUSH ONE (03:37)
[2023-11-05] MEDS ORDERED: ACETAMINOPHEN 1000 MG/100 ML BAG IVPB ONE (03:38)
== END 2023-11-05 04:20 | disposition left against medical advice (07) ==
LOC: JER 02:44
DX: I10 Essential (primary) hypertension (principal); R51.9 Headache, unspecified; H53.149 Visual discomfort, unspecified; R05.9 Cough, unspecified; R07.2 Precordial pain; R09.89 Other specified symptoms and signs involving the circulatory and respiratory systems
CPT/HCPCS: 99281-25